=== PATIENT | female | born 1990 | race African-American/Black ===

== ENCOUNTER 2018-01-08 15:59 | Inpatient (IN) | payer SELFPAY ==
[2018-01-08] MEDS ORDERED: PROMETHAZINE INJ 25 MG in SODIUM CHLORIDE 0.9% 50 ML IV STA (16:52)
[2018-01-08] MEDS ORDERED: HYDROmorphone 1 MG/ML CARPUJECT IVP STA ×3 (16:52→19:29)
[2018-01-08] MEDS ORDERED: diphenhydrAMINE INJ 50 MG/ML VIAL IVP STA ×2 (16:52→19:30)
[2018-01-08] MEDS ORDERED: SODIUM CHLORIDE 0.9% 1,000 ML IV ONE (16:52)
[2018-01-08] MEDS ORDERED: levETIRAcetam INJ 1,000 MG in SODIUM CHLORIDE 0.9% 100ML 100 ML IV STA (16:53)
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
[2018-01-08] MEDS ORDERED: ENOXAPARIN 100 MG/ML SYRINGE SUBQ STA (17:10)
[2018-01-08 17:24] LABS: BASOPHILS % (AUTO) 0.3 %; EOSINOPHILS # (AUTO) 0.1 10^3/uL (0.0-0.7); EOSINOPHILS % (AUTO) 1.4 %; HGB - HEMOGLOBIN 9.4 g/dL (12.0-16.0); LYMPHOCYTES # (AUTO) 1.4 10^3/uL (1.5-3.5); MEAN CORPUSCULAR HEMOGLOBIN 24.7 pg (27.0-31.0); MEAN CORPUSCULAR HGB CONC 31.4 g/dL (32.0-36.0); MEAN CORPUSCULAR VOLUME 78.7 fL (81.0-99.0); MEAN PLATELET VOLUME 7.1 fL (7.9-10.8); MEAN RETIC VALUE 105.9; MONOCYTES # (AUTO) 0.5 10^3/uL (0.0-1.0); MONOCYTES % (AUTO) 7.1 %; NEUTROPHILS # (AUTO) 4.9 10^3/uL (1.5-6.6); NEUTROPHILS % (AUTO) 71.2 %; PLT - PLATELET COUNT 274 10^3/uL (130-450); RED BLOOD COUNT 3.81 10^6/uL (4.20-5.40); RED CELL DISTRIBUTION WIDTH 18.2 % (12.0-15.0); WHITE BLOOD COUNT 6.9 x10^3/uL (4.8-10.8)
[2018-01-08 17:42] LABS: ALBUMIN 3.5 g/dL (3.2-5.5); ALKALINE PHOSPHATASE 85 IU/L (42-121); ALT ALANINE AMINOTRANSFERASE 11 IU/L (10-60); AST ASPARTATE AMINOTRANSFERASE 22 IU/L (10-42); BILIRUBIN,TOTAL 0.4 mg/dL (0.2-1.0); BUN - BLOOD UREA NITROGEN < 5 mg/dL (6-20); CALCIUM 8.9 mg/dL (8.5-10.3); CARBON DIOXIDE - CO2 26 mmol/L (21-32); CHLORIDE 107 mmol/L (101-111); CREATININE 0.5 mg/dL (0.4-1.0); GFR - MDRD 178 (>89); GLUCOSE 99 mg/dL (70-100); LIPASE 26 U/L (22-51); SODIUM 138 mmol/L (135-145)
--- NOTE | 2018-01-08 17:50 | XRAY Report ---
EXAM: CHEST RADIOGRAPHY EXAM DATE: 01/08/2018 05:41 PM. CLINICAL HISTORY: Chest pain. COMPARISON: None. TECHNIQUE: 2 views. FINDINGS: Lungs/Pleura: No focal opacities evident. No pleural effusion. No pneumothorax. Normal volumes. Mediastinum: Heart and mediastinal contours are unremarkable. Other: Right central catheter tip is in the upper atrium. IMPRESSION: No acute intrathoracic plain film abnormality. [facility] Referring Provider Line: [phone] SITE ID: [id number]
[2018-01-08] MEDS ORDERED: levETIRAcetam INJ 500 MG in SODIUM CHLORIDE 0.9% 100ML 100 ML IV STA (18:05)
[2018-01-08 18:13] LABS: BILIRUBIN,URINE NEGATIVE (NEGATIVE); GLUCOSE, URINE (UA) NEGATIVE (NEGATIVE); KETONES,URINE (UA) NEGATIVE (NEGATIVE); LEUKOCYTE ESTERASE, URINE NEGATIVE (NEGATIVE); NITRITE,URINE NEGATIVE (NEGATIVE); OCCULT BLOOD,URINE NEGATIVE (NEGATIVE); PH,URINE 6.5 PH (5.0-7.5); PROTEIN,URINE NEGATIVE (NEGATIVE); UROBILINOGEN,URINE 0.2 (NORMAL) E.U./dL (NORMAL)
[2018-01-08 18:14] LABS: CLARITY,URINE CLEAR (CLEAR)
[2018-01-08 18:15] LABS: HCG UR QUAL NEGATIVE
[2018-01-08] MEDS ORDERED: VANCOMYCIN INJ 1.5 GM in SODIUM CHLORIDE 0.9% 500 ML IV STA (19:33)
[2018-01-08] MEDS ORDERED: cefTRIAXone 1 GM in SODIUM CHLORIDE 0.9% MINIBAG 100 ML IV STA ×2 (19:33→20:15)
[2018-01-08] MEDS ORDERED: PROCHLORPERAZINE 10 MG/2 ML VIAL IVP PRN (20:08)
[2018-01-08] MEDS ORDERED: VANCOMYCIN PER PHARMACY 0.1 GM in SODIUM CHLORIDE 0.9% 250 ML IV SCH (21:00)
[2018-01-08] MEDS ORDERED: TEMAZEPAM 15 MG CAPSULE PO PRN (22:01)
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
[2018-01-08] MEDS: NORTRIPTYLINE 25 MG CAPSULE PO SCH (22:46)
[2018-01-08] MEDS: HYDROmorphone 1 MG/ML CARPUJECT IVP PRN (22:47)
[2018-01-08] MEDS: D5.45NS W/20 MEQ KCL 1,000 ML IV SCH (22:47)
[2018-01-08] MEDS: SODIUM CHLORIDE FLUSH 0.9% 10 ML SYRINGE IVP SCH (22:47)
[2018-01-09] MEDS: oxyCODONE 5 MG TABLET PO PRN ×4 (00:34→19:12)
[2018-01-09] MEDS: HYDROmorphone 1 MG/ML CARPUJECT IVP PRN ×9 (01:57→21:25)
[2018-01-09] MEDS: SODIUM CHLORIDE FLUSH 0.9% 10 ML SYRINGE IVP SCH ×3 (01:58→06:43)
[2018-01-09] MEDS: diphenhydrAMINE 25 MG CAPSULE PO PRN ×3 (01:58→12:31)
[2018-01-09 06:38] LABS: BASOPHILS % (AUTO) 0.5 %; EOSINOPHILS # (AUTO) 0.1 10^3/uL (0.0-0.7); EOSINOPHILS % (AUTO) 1.6 %; HGB - HEMOGLOBIN 9.2 g/dL (12.0-16.0); LYMPHOCYTES # (AUTO) 1.4 10^3/uL (1.5-3.5); LYMPHOCYTES % (AUTO) 23.2 %; MEAN CORPUSCULAR HEMOGLOBIN 25.3 pg (27.0-31.0); MEAN CORPUSCULAR HGB CONC 31.7 g/dL (32.0-36.0); MEAN CORPUSCULAR VOLUME 79.8 fL (81.0-99.0); MEAN PLATELET VOLUME 6.9 fL (7.9-10.8); MONOCYTES # (AUTO) 0.5 10^3/uL (0.0-1.0); MONOCYTES % (AUTO) 8.1 %; NEUTROPHILS # (AUTO) 4.1 10^3/uL (1.5-6.6); NEUTROPHILS % (AUTO) 66.6 %; PLT - PLATELET COUNT 259 10^3/uL (130-450); RED BLOOD COUNT 3.66 10^6/uL (4.20-5.40); RED CELL DISTRIBUTION WIDTH 18.7 % (12.0-15.0); WHITE BLOOD COUNT 6.2 x10^3/uL (4.8-10.8)
[2018-01-09] MEDS ORDERED: VANCOMYCIN INJ 1.75 GM in SODIUM CHLORIDE 0.9% 500 ML IV SCH (07:00)
[2018-01-09 07:04] LABS: PLATELET ESTIMATE, MANUAL NORMAL (130-450,000) (NORMAL)
[2018-01-09 07:06] LABS: BUN - BLOOD UREA NITROGEN < 5 mg/dL (6-20); CALCIUM 8.7 mg/dL (8.5-10.3); CARBON DIOXIDE - CO2 26 mmol/L (21-32); CHLORIDE 109 mmol/L (101-111); CREATININE 0.4 mg/dL (0.4-1.0); GFR - MDRD 230 (>89); GLUCOSE 108 mg/dL (70-100); SODIUM 140 mmol/L (135-145)
[2018-01-09] MEDS: POLYETHYLENE GLYCOL 3350 17 GM PACKET PO SCH (08:15)
[2018-01-09] MEDS: NYSTATIN POWDER 15 GM TOP SCH ×2 (09:25→21:25)
[2018-01-09] MEDS: D5.45NS W/20 MEQ KCL 1,000 ML IV SCH ×3 (10:02→20:27)
[2018-01-09] MEDS ORDERED: LORazepam 2 MG/ML VIAL IVP PRN ×3 (11:19→17:00)
[2018-01-09] MEDS: APIXABAN 2.5 MG TABLET PO SCH ×2 (11:31→21:25)
[2018-01-09] MEDS: levETIRAcetam 250 MG TABLET PO SCH ×2 (11:32→21:25)
[2018-01-09] MEDS ORDERED: LORazepam 2 MG/ML VIAL IVP ONE (12:22)
[2018-01-09] MEDS ORDERED: GADOBUTROL 15 MMOL/15 ML VIAL ONE (15:44)
[2018-01-09] MEDS: LIDOCAINE VISCOUS 2% 15 ML UDC MM PRN ×2 (15:52→21:47)
[2018-01-09] MEDS: VANCOMYCIN INJ 1 GM, VANCOMYCIN INJ 500 MG in SODIUM CHLORIDE 0.9% 500 ML IV SCH (17:31)
[2018-01-09] MEDS ORDERED: GADOBUTROL 15 MMOL/15 ML VIAL IVP ONE (17:43)
--- NOTE | 2018-01-09 18:56 | MRI Preliminary Report ---
Exam: MRI BRAIN W/WO Impression: No acute infarct. Postoperative findings after right-sided craniotomy and resection, with a focus of enhancement as sindy cribed, may reflect residual or recurrent tumor. There is no comparison study with which to assess in terval change. At least 3 additional small foci diminished gradient signal are identified, without enhancement, may reflect cavernomas. Possible post radiation effect, clinical correlation suggested. Noncontrast head CT is suggested. SITE ID: [id number]
--- NOTE | 2018-01-09 19:03 | MRI Report ---
EXAM: MRI BRAIN WITH AND WITHOUT CONTRAST COMPARISON: None. CLINICAL HISTORY: History of glioblastoma and craniotomy. TECHNIQUE: Multiplanar multisequence imaging is performed through the head with and without Gadavist. FINDINGS: Diffusion-weighted imaging shows no acute infarct. Gradient sequence shows diminished signal in the right posterior frontal/parietal cortex, concordant with prior craniotomy and resection. Additional small foci of diminished gradient signal in the left parietal cortex (801, 30), in the lef t parietal cortex (801, 24) and in the left cerebellum (801, 17) of uncertain etiology. These may ref lect post radiation cavernomas, clinical correlation suggested. Noncontrast head CT is suggested. Postcontrast imaging shows a focus of enhancement in the right parietal cortex measuring up to 8.5 mm (1002, 89), in the area of prior resection. No other discrete foci of abnormal enhancement are ident ified. Limited evaluation of the dural venous sinuses and arterial structures is unremarkable. No abnormal elevated T1 signal in the brain parenchyma. No developmental anomalies are seen. There is expected abnormal signal in the scalp. Pituitary fossa, clivus, and foramen magnum are unremarkable. No abnormal calvarial enhancement, except as expected related to the right-sided craniotomy. IMPRESSION: No acute infarct. Postoperative findings after right-sided parietal craniotomy and resection, with a focus of enhanceme nt as described, may reflect residual or recurrent tumor. There is no comparison study with which to assess interval change. At least three additional small foci diminished gradient signal are identified, without enhancement, may reflect cavernomas. Possible post radiation effect, clinical correlation suggested. Noncontrast head CT is suggested. Referring Provider Line: [phone] SITE ID: [id number]
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
[2018-01-09] MEDS ORDERED: cefTRIAXone 1 GM in SODIUM CHLORIDE 0.9% MINIBAG 100 ML IV SCH (20:00)
[2018-01-09] MEDS ORDERED: LEVETIRACETAM 1500 MG PO SCH (21:00)
[2018-01-09] MEDS ORDERED: APIXABAN 5 MG PO SCH (21:00)
[2018-01-09] MEDS: NORTRIPTYLINE 25 MG CAPSULE PO SCH (21:25)
[2018-01-09] MEDS: SODIUM CHLORIDE FLUSH 0.9% 10 ML SYRINGE IVP PRN (21:49)
[2018-01-10] MEDS: LIDOCAINE VISCOUS 2% 15 ML UDC MM PRN ×3 (00:28→12:08)
[2018-01-10] MEDS: diphenhydrAMINE 25 MG CAPSULE PO PRN ×4 (00:28→21:36)
[2018-01-10] MEDS: VANCOMYCIN INJ 1 GM, VANCOMYCIN INJ 500 MG in SODIUM CHLORIDE 0.9% 500 ML IV SCH ×2 (00:29→08:13)
[2018-01-10] MEDS: HYDROmorphone 1 MG/ML CARPUJECT IVP PRN ×6 (00:33→19:50)
[2018-01-10] MEDS: D5.45NS W/20 MEQ KCL 1,000 ML IV SCH ×2 (01:58→05:53)
[2018-01-10] MEDS: SODIUM CHLORIDE FLUSH 0.9% 10 ML SYRINGE IVP PRN ×6 (03:02→19:50)
[2018-01-10 05:05] LABS: HGB - HEMOGLOBIN 9.3 g/dL (12.0-16.0); MEAN CORPUSCULAR HEMOGLOBIN 25.2 pg (27.0-31.0); MEAN CORPUSCULAR HGB CONC 31.7 g/dL (32.0-36.0); MEAN CORPUSCULAR VOLUME 79.4 fL (81.0-99.0); MEAN PLATELET VOLUME 6.8 fL (7.9-10.8); RED BLOOD COUNT 3.69 10^6/uL (4.20-5.40); RED CELL DISTRIBUTION WIDTH 18.7 % (12.0-15.0); WHITE BLOOD COUNT 7.5 x10^3/uL (4.8-10.8)
[2018-01-10 05:14] LABS: BUN - BLOOD UREA NITROGEN < 5 mg/dL (6-20); CALCIUM 8.8 mg/dL (8.5-10.3); CARBON DIOXIDE - CO2 28 mmol/L (21-32); CHLORIDE 102 mmol/L (101-111); CREATININE 0.6 mg/dL (0.4-1.0); GFR - MDRD 144 (>89); GLUCOSE 114 mg/dL (70-100); SODIUM 137 mmol/L (135-145)
[2018-01-10] MEDS: oxyCODONE 5 MG TABLET PO PRN ×3 (08:04→21:36)
[2018-01-10] MEDS: levETIRAcetam 250 MG TABLET PO SCH ×2 (08:09→21:33)
[2018-01-10] MEDS: NYSTATIN POWDER 15 GM TOP SCH ×2 (08:09→21:34)
[2018-01-10] MEDS: APIXABAN 2.5 MG TABLET PO SCH ×2 (08:09→21:33)
[2018-01-10] MEDS: SODIUM CHLORIDE FLUSH 0.9% 10 ML SYRINGE IVP SCH ×2 (08:10→16:06)
[2018-01-10] MEDS: POLYETHYLENE GLYCOL 3350 17 GM PACKET PO SCH (08:10)
[2018-01-10] MEDS ORDERED: D5.45NS W/20 MEQ KCL 1,000 ML IV SCH (08:16)
[2018-01-10 08:29] LABS: VANCOMYCIN,TROUGH 22.1 ug/mL (5.0-15.0)
[2018-01-10] MEDS: CLINDAMYCIN 150 MG CAPSULE PO SCH ×2 (11:07→19:37)
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
[2018-01-10] MEDS: diazePAM 5 MG TABLET PO PRN ×2 (12:41→22:05)
[2018-01-10] MEDS ORDERED: POTASSIUM CHLORIDE 20 MEQ TABLET PO SCH (17:46)
[2018-01-10] MEDS ORDERED: POTASSIUM CHLOR 10 MEQ/100 ML 10 MEQ/100 ML BAG IV SCH (17:48)
[2018-01-10] MEDS: SPIRONOLACTONE 25 MG TABLET PO SCH (19:36)
[2018-01-10] MEDS: NORTRIPTYLINE 25 MG CAPSULE PO SCH (21:34)
[2018-01-11] MEDS: SODIUM CHLORIDE FLUSH 0.9% 10 ML SYRINGE IVP SCH ×3 (00:22→16:12)
[2018-01-11] MEDS: HYDROmorphone 1 MG/ML CARPUJECT IVP PRN ×3 (00:22→09:09)
[2018-01-11] MEDS: SODIUM CHLORIDE FLUSH 0.9% 10 ML SYRINGE IVP PRN ×3 (00:23→15:47)
[2018-01-11] MEDS: CLINDAMYCIN 150 MG CAPSULE PO SCH ×2 (00:25→09:00)
[2018-01-11] MEDS: diphenhydrAMINE 25 MG CAPSULE PO PRN (02:10)
[2018-01-11 04:23] LABS: HGB - HEMOGLOBIN 9.4 g/dL (12.0-16.0); MEAN CORPUSCULAR HEMOGLOBIN 24.6 pg (27.0-31.0); MEAN CORPUSCULAR HGB CONC 30.9 g/dL (32.0-36.0); MEAN CORPUSCULAR VOLUME 79.6 fL (81.0-99.0); RED BLOOD COUNT 3.85 10^6/uL (4.20-5.40); RED CELL DISTRIBUTION WIDTH 18.5 % (12.0-15.0); WHITE BLOOD COUNT 6.7 x10^3/uL (4.8-10.8)
[2018-01-11 04:36] LABS: BUN - BLOOD UREA NITROGEN < 5 mg/dL (6-20); CALCIUM 8.9 mg/dL (8.5-10.3); CARBON DIOXIDE - CO2 28 mmol/L (21-32); CHLORIDE 104 mmol/L (101-111); CREATININE 0.7 mg/dL (0.4-1.0); GFR - MDRD 121 (>89); GLUCOSE 94 mg/dL (70-100); SODIUM 139 mmol/L (135-145)
[2018-01-11] MEDS: levETIRAcetam 250 MG TABLET PO SCH (09:00)
[2018-01-11] MEDS: APIXABAN 2.5 MG TABLET PO SCH (09:01)
[2018-01-11] MEDS: SPIRONOLACTONE 25 MG TABLET PO SCH (09:01)
[2018-01-11] MEDS ORDERED: POTASSIUM CHLORIDE 20 MEQ TABLET PO ONE (09:02)
[2018-01-11] MEDS ORDERED: HYDROmorphone 1 MG/ML CARPUJECT IVP PRN (09:02)
[2018-01-11] MEDS: POLYETHYLENE GLYCOL 3350 17 GM PACKET PO SCH (09:10)
[2018-01-11] MEDS: NYSTATIN POWDER 15 GM TOP SCH (09:10)
[2018-01-11 16:26] VITALS: BP 127/80
[2018-01-11] MEDS: oxyCODONE 5 MG TABLET PO PRN (16:41)
[2018-01-11] MEDS: diazePAM 5 MG TABLET PO PRN (16:42)
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
== END 2018-01-11 17:25 | disposition left against medical advice (07) | DRG 812 ==
LOC: ED 15:59 → MS2 20:09 → EEVIPCON 20:09
PROVIDERS: ADMIT Hospitalist; ATTEND Internal Medicine
DX: D57.01 Hb-SS disease with acute chest syndrome (principal); G40.909 Epilepsy, unspecified, not intractable, without status epilepticus; K08.89 Other specified disorders of teeth and supporting structures; R93.8 Abnormal findings on diagnostic imaging of other specified body structures; R60.0 Localized edema; Z76.5 Malingerer [conscious simulation]; Z79.01 Long term (current) use of anticoagulants; Z79.899 Other long term (current) drug therapy; Z85.841 Personal history of malignant neoplasm of brain; Z86.711 Personal history of pulmonary embolism; Z86.718 Personal history of other venous thrombosis and embolism; Z87.442 Personal history of urinary calculi; Z91.419 Personal history of unspecified adult abuse; Z90.81 Acquired absence of spleen; Z59.0 Homelessness
CPT/HCPCS: 36415; 70553; 71046; 80048; 80053; 81001; 81003; 81025; 83605; 83690; 83735; 85025; 85044; 87040; 87086; 87493; 93308; 96365; 96366; 96367; 96372; 96375; 96376; 99283; 99284; 99285